=== PATIENT | male | born 1995 | race Caucasian/White ===

== ENCOUNTER 2017-07-05 23:29 | Emergency (ER) | payer MEDICAID, OTHER ==
[~2017-07-05] VITALS: Ht 182.9 cm; Wt 55.2 kg
[2017-07-05 23:42] VITALS: Ht 182.9 cm; Wt 55.2 kg
[2017-07-06] MEDS ORDERED: HYDROCODONE/APAP (5/325) TAB PO STA (01:56)
--- NOTE | 2017-07-06 03:06 | ERD ---
ER Documentation Chief Complaint Chief Complaint Lt thumb s/p cut with knife 1 hr [employer]. No active bleeding HPI This 21-year-old male patient presents to emergency department today for left thumb laceration. Patient reports he was opening a flashlight box with his new knife, box slipped and he cut his left thumb. Patient has full range of motion , denies numbness or tingling to his fingertip, which is not actively bleeding at this time. Patient requests not to have a tetanus vaccine states the knife is only 2 days old and very clean. ROS All systems reviewed and are negative except as per history of present illness. Medications Home Meds Active Scripts Ibuprofen* (Motrin*) 600 Mg Tab, 600 MG PO Q6, #30 TAB Prov:ERIKALINDSAYCOMPA 07/06/17 Allergies Allergies: Coded Allergies: No Known Allergy (Unverified , 07/05/17) PMhx/Soc Medical and Surgical Hx: pt denies Medical Hx, pt denies Surgical Hx Hx Alcohol Use: No Hx Substance Use: No Hx Tobacco Use: Yes Smoking Status: Current every day smoker Physical Exam Vitals Vitals stable, triage notes reviewed Physical Exam Const: Well-nourished, well-appearing, well-hydrated 21-year-old male patient no acute distress ENT: Normal External Ears, Nose and Mouth. Resp: Clear to auscultation bilaterally, No respiratory distress Skin: 1.3 cm even laceration to left pad of thumb, medial aspect nail is intact and unaffected Hand -left thumb: Skin: 1.3 cm laceration left thumb medial aspect of pad, does not involve nail. Compartments: Soft Sensation: Intact shoulder/pinky/middle finger/thumb web space Bones: Nontender Snuffbox: Nontender Joints: No effusion Thumb: Flex/Ext: Normal Opposition: Normal Thumbs up: Normal Neur: Awake and alert Psych: Normal Mood and Affect Results 24 hrs Current Medications Medications (Trade) Dose Ordered Sig/Paco Route PRN Reason Start Time Stop Time Status Last Admin Dose Admin Acetaminophen/ Hydrocodone Bitart ([place] (5/325)) 1 tab ONCE STAT PO 07/06/17 01:56 07/06/17 01:58 DC 07/06/17 02:02 Procedures/MDM Laceration Repair by me: Anesthesia: None Location: Left thumb medial aspect of pad, laceration does not involve nail Tendon/Joint/Nerves: No injury Foreign body: None detected after copious irrigation and exploration Technique: Steri-Strips and surgical glue Complexity: No subcutaneous sutures/mucosal repair/ edge excision Post Closure Length: 1.3cm Patient's bleeding was easily controlled in the department and there is no indication of anemia. No evidence of compartment syndrome, neurologic injury, vascular injury, open joint, tendon laceration, or foreign body. Patient is appropriate for outpatient follow up. 48 hour wound check. Scar minimization instructions given. Patient is stable with no new complaints during ER course, clinically there is no current evidence to suggest or any other emergent condition appearing to require further evaluation or hospitalization. I feel the patient is stable for discharge at this time. I have discussed results, examination findings, the treatment plan with the patient and family present prior to discharge. Indications for emergent reevaluation, side effects of medication were also discussed. All questions were answered. Patient verbalizes understanding and agrees with plan of care. Departure Diagnosis: Primary Impression: Laceration Condition: Good Patient Instructions: Laceration, Hand Additional Instructions: Thank you for for coming to [facility] for your care today. Please ask your nurse or provider if you have questions about your care today and do not leave until all your questions have been answered. Please use any medications given as directed and follow-up with your doctor (or the doctor you were referred to) in the next 2-3 days. If you do not have a primary care doctor you may follow up at the [facility] [place] (listed below). You may also use motrin and tylenol as needed for fever and/or pain unless instructed otherwise by your provider or nurse. Indications for more urgent follow-up have been discussed, but you may return to the Emergency Department at ANY time for any worrisome or worsening symptoms. If you have abdominal pain, please know that no test or exam you received is perfect and you should follow up within 8 hours for continued pain. If you had any imaging studies today, such as an X-Ray or CT Scan, these studies will be reviewed later by a radiologist. You will be called if there are important findings that were not identified today, so make sure the contact information you provided at registration is correct. If you received any narcotic pain control medicine today, such as Vicodin, Morphine or Dilaudid, your coordination and judgment may be affected for a number of hours. Please do not drive or operate heavy machinery, and you may want someone to assist you at home. If you were given a prescription for narcotic medication, be aware that it is very addictive- use sparingly and only if necessary. COMPA JAMES Jul 06, 2017 03:04
[2017-07-06] MEDS ORDERED: IBUP-1542 PO (03:07)
[2017-07-06 03:17] VITALS: BP 126/77; PULSE 73; RESP 16; TEMP 98.7
== END 2017-07-06 03:19 | disposition home or self-care (01) ==
LOC: FTE 23:29
DX: S61.012A Laceration without foreign body of left thumb without damage to nail, initial encounter (principal); F17.210 Nicotine dependence, cigarettes, uncomplicated; W26.0XXA Contact with knife, initial encounter; Y92.9 Unspecified place or not applicable
CPT/HCPCS: 12001; Z7502; Z7610